=== PATIENT | male | born 1970 | race Caucasian/White ===

== ENCOUNTER 2016-12-27 13:32 | Emergency (ER) | payer SELFPAY ==
[2016-12-27 13:42] VITALS: BP 142/81
[2016-12-27] MEDS: KETOROLAC TROMETHAMINE 60 MG/2 ML VIAL IM ONE (14:09)
[2016-12-27] MEDS: ORPHENADRINE CITRATE 60 MG/2ML IM ONE (14:10)
== END 2016-12-27 15:05 ==
LOC: ED 13:32
DX: M54.9 Dorsalgia, unspecified (principal); Z53.21 Procedure and treatment not carried out due to patient leaving prior to being seen by health care provider
CPT/HCPCS: J1885; J2360; 96372; 99281